=== PATIENT | female | born 1950 | race Caucasian/White ===

== ENCOUNTER 2020-08-02 20:07 | Emergency (ER) | payer MEDICARE, OTHER ==
[2020-08-02] MEDS ORDERED: SODIUM CHLORIDE 0.9% 1,000 ML IV STA (20:08)
[2020-08-02 20:13] LABS: Glucose,Whole Blood 203 mg/dL (75-99)
--- NOTE | 2020-08-02 20:18 | ED ---
CPR HPI - General Stated Complaint: Cardiac Arrest - History of Present Illness Initial Comments: Patient is an elderly female who presents to the emergency department today via ambulance after cardiac arrest. History is provided by the EMS team. They were dispatched to the scene at 19:02, they had been called for shortness of breath. Upon arrival the patient was pulseless and apneic. They began resuscitation per ACLS protocol and obtain return of circulation. In route to the hospital they again loss circulation and performed an additional couple of rounds of CPR and obtained a turn of circulation. In total the patient received 3 doses of epinephrine. - Related Data Allergies Allergy/AdvReac Type Severity Reaction Status Date / Time Unable to Assess Allergy Verified 08/02/20 20:13 Review of Systems ROS Statement: Those systems with pertinent positive or pertinent negative responses have been documented in the HPI. ROS Other: All systems not noted in ROS Statement are negative. General Exam - General Exam Comments Initial Comments: Physical Exam GENERAL: Unresponsive HENT: Normocephalic, Atraumatic. EYES: Pupils 4mm non-reactive PULMONARY: Ventilator respirations, coarse CARDIOVASCULAR: RRR ABDOMEN: Soft and nontender with normal bowel sounds. SKIN: Dusky : Deferred NEUROLOGIC: Unresponsive, intubated, not requiring sedation No pupillary or corneal reflex MUSCULOSKELETAL: No evidence of trauma PSYCHIATRIC: Unable to assess Course Vital Signs 08/02/20 08/02/20 08/02/20 20:08 20:12 20:17 Pulse Rate 81 62 49 L Respiratory 14 14 Rate Blood Pressure 89/60 154/114 O2 Sat by Pulse 78 L Oximetry 08/02/20 08/02/20 08/02/20 20:21 20:28 20:35 Pulse Rate 41 L 158 H 58 L Respiratory 14 14 18 Rate Blood Pressure 72/29 108/72 58/35 O2 Sat by Pulse Oximetry 08/02/20 08/02/20 20:40 20:46 Pulse Rate 120 H 73 Respiratory 14 14 Rate Blood Pressure 146/92 66/47 O2 Sat by Pulse Oximetry Medical Decision Making - Medical Decision Making She was seen and evaluated immediately upon arrival to the emergency department Patient was unresponsive, intubated not requiring sedation While in the emergency department patient repeatedly lost pulses She was resuscitated per ACLS protocol After multiple rounds of CPR patient's cumulative down time was approaching 2 hours, she remained unresponsive with no meaningful neurologic recovery, she remained hypoxic despite FiO2 of 100%, COVID test was positive. At 8:48 PM resuscitation efforts were terminated due to futility of care the patient was pronounced - Lab Data Result diagrams: 08/02/20 20:33 08/02/20 20:33 Lab Results 08/02/20 08/02/20 08/02/20 Range/Units 20:12 20:33 20:33 WBC 11.2 H (3.8-10.6) k/uL RBC 4.15 (3.80-5.40) m/uL Hgb 13.5 (11.4-16.0) gm/dL Hct 43.0 (34.0-46.0) % MCV 103.7 H (80.0-100.0) fL MCH 32.6 (25.0-35.0) pg MCHC 31.5 (31.0-37.0) g/dL RDW 13.6 (11.5-15.5) % Plt Count 201 (150-450) k/uL MPV 9.0 Neutrophils % 80 % Lymphocytes % 15 % Monocytes % 3 % Eosinophils % 0 % Basophils % 1 % Neutrophils # 8.9 H (1.3-7.7) k/uL Lymphocytes # 1.6 (1.0-4.8) k/uL Monocytes # 0.3 (0-1.0) k/uL Eosinophils # 0.0 (0-0.7) k/uL Basophils # 0.1 (0-0.2) k/uL Hypochromasia Marked Macrocytosis Slight PT 10.8 (9.0-12.0) sec INR 1.0 (<1.2) APTT 29.8 (22.0-30.0) sec D-Dimer >34.10 H (<0.60) mg/L FEU Sodium (137-145) mmol/L Potassium (3.5-5.1) mmol/L Chloride (98-107) mmol/L Carbon Dioxide (22-30) mmol/L Anion Gap mmol/L BUN (7-17) mg/dL Creatinine (0.52-1.04) mg/dL Est GFR (CKD-EPI)AfAm (>60 ml/min/1.73 sqM) Est GFR (CKD-EPI)NonAf (>60 ml/min/1.73 sqM) Glucose (74-99) mg/dL POC Glucose (mg/dL) 203 H (75-99) mg/dL POC Glu [employer] ID Dior Lopez Calcium (8.4-10.2) mg/dL Magnesium (1.6-2.3) mg/dL Total Bilirubin (0.2-1.3) mg/dL AST (14-36) U/L ALT (4-34) U/L Alkaline Phosphatase (38-126) U/L Creatine Kinase (30-135) U/L Troponin I (0.000-0.034) ng/mL NT-Pro-B Natriuret Pep pg/mL Total Protein (6.3-8.2) g/dL Albumin (3.5-5.0) g/dL Coronavirus (PCR) (Not Detectd) 08/02/20 08/02/20 08/02/20 Range/Units 20:33 20:33 20:33 WBC (3.8-10.6) k/uL RBC (3.80-5.40) m/uL Hgb (11.4-16.0) gm/dL Hct (34.0-46.0) % MCV (80.0-100.0) fL MCH (25.0-35.0) pg MCHC (31.0-37.0) g/dL RDW (11.5-15.5) % Plt Count (150-450) k/uL MPV Neutrophils % % Lymphocytes % % Monocytes % % Eosinophils % % Basophils % % Neutrophils # (1.3-7.7) k/uL Lymphocytes # (1.0-4.8) k/uL Monocytes # (0-1.0) k/uL Eosinophils # (0-0.7) k/uL Basophils # (0-0.2) k/uL Hypochromasia Macrocytosis PT (9.0-12.0) sec INR (<1.2) APTT (22.0-30.0) sec D-Dimer (<0.60) mg/L FEU Sodium 139 (137-145) mmol/L Potassium 4.3 (3.5-5.1) mmol/L Chloride 104 (98-107) mmol/L Carbon Dioxide 9 L* (22-30) mmol/L Anion Gap 26 mmol/L BUN 14 (7-17) mg/dL Creatinine 1.29 H (0.52-1.04) mg/dL Est GFR (CKD-EPI)AfAm 48 (>60 ml/min/1.73 sqM) Est GFR (CKD-EPI)NonAf 42 (>60 ml/min/1.73 sqM) Glucose 205 H (74-99) mg/dL POC Glucose (mg/dL) (75-99) mg/dL POC Glu [employer] ID Calcium 7.7 L (8.4-10.2) mg/dL Magnesium 3.0 H (1.6-2.3) mg/dL Total Bilirubin 0.7 (0.2-1.3) mg/dL AST 1066 H (14-36) U/L ALT 489 H (4-34) U/L Alkaline Phosphatase 142 H (38-126) U/L Creatine Kinase 469 H (30-135) U/L Troponin I 2.840 H* (0.000-0.034) ng/mL NT-Pro-B Natriuret Pep 2210 pg/mL Total Protein 5.0 L (6.3-8.2) g/dL Albumin 2.7 L (3.5-5.0) g/dL Coronavirus (PCR) (Not Detectd) 08/02/20 Range/Units 20:34 WBC (3.8-10.6) k/uL RBC (3.80-5.40) m/uL Hgb (11.4-16.0) gm/dL Hct (34.0-46.0) % MCV (80.0-100.0) fL MCH (25.0-35.0) pg MCHC (31.0-37.0) g/dL RDW (11.5-15.5) % Plt Count (150-450) k/uL MPV Neutrophils % % Lymphocytes % % Monocytes % % Eosinophils % % Basophils % % Neutrophils # (1.3-7.7) k/uL Lymphocytes # (1.0-4.8) k/uL Monocytes # (0-1.0) k/uL Eosinophils # (0-0.7) k/uL Basophils # (0-0.2) k/uL Hypochromasia Macrocytosis PT (9.0-12.0) sec INR (<1.2) APTT (22.0-30.0) sec D-Dimer (<0.60) mg/L FEU Sodium (137-145) mmol/L Potassium (3.5-5.1) mmol/L Chloride (98-107) mmol/L Carbon Dioxide (22-30) mmol/L Anion Gap mmol/L BUN (7-17) mg/dL Creatinine (0.52-1.04) mg/dL Est GFR (CKD-EPI)AfAm (>60 ml/min/1.73 sqM) Est GFR (CKD-EPI)NonAf (>60 ml/min/1.73 sqM) Glucose (74-99) mg/dL POC Glucose (mg/dL) (75-99) mg/dL POC Glu [employer] ID Calcium (8.4-10.2) mg/dL Magnesium (1.6-2.3) mg/dL Total Bilirubin (0.2-1.3) mg/dL AST (14-36) U/L ALT (4-34) U/L Alkaline Phosphatase (38-126) U/L Creatine Kinase (30-135) U/L Troponin I (0.000-0.034) ng/mL NT-Pro-B Natriuret Pep pg/mL Total Protein (6.3-8.2) g/dL Albumin (3.5-5.0) g/dL Coronavirus (PCR) Detected A (Not Detectd) Critical Care Time Critical Care Time: Yes Total Critical Care Time: 40 Critical Care Time: Critical Care Time 48 min Critical care time was exclusive of separately billable procedures and treating other patients and teaching time. Critical care was necessary to treat or prevent imminent or life-threatening deterioration. Given the critical condition in which the patient arrived, the patient was immediately assessed by myself and the nurse, and cardiac monitoring initiated due to the potential for rapid decompensation of the patient's clinical condition. During the course of the patients stay, I spent a considerable amount of time at the bedside performing serial re-evaluations of the patient's hemodynamic and clinical status because of the recognized potential threat to life or limb in this condition. I then had a chance to review not only all of the available current laboratory and radiographic studies obtained today, but I also reviewed old records available to me at the time. Additionally, any ancillary information available including department specialist records were reviewed. Sequential vital signs were obtained. Disposition Clinical Impression: COVID-19 Disposition: Referrals: Meenu Ribera MD [Primary Care Provider] - 1-2 days Preliminary Cause of : COVID
[2020-08-02] MEDS ORDERED: EPINEPHrine 10 ML SYRINGE (0.1 MG/ML) ONE (20:23)
[2020-08-02] MEDS ORDERED: SODIUM BICARB SYR (1 MEQ/ML) 10 ML SYRINGE ONE (20:23)
[2020-08-02] MEDS ORDERED: NOREPINEPHRINE 8 MG in SODIUM CHLORIDE 0.9% 250 ML IV ONE (20:28)
[2020-08-02 20:42] VITALS: RESP 14
[2020-08-02 20:47] VITALS: BP 66/47; PULSE 73
--- NOTE | 2020-08-02 20:47 | XR ---
EXAMINATION TYPE: XR chest 1V portable DATE OF EXAM: 08/02/2020 COMPARISON: NONE HISTORY: Cardiac arrest. Shortness of breath. TECHNIQUE: Single frontal view of the chest is obtained. FINDINGS: There is demonstration of an endotracheal tube with tip position obscured. There is a naso gastric tube with tip overlying the stomach. There are bilateral diffuse opacities with near complete opacification. No significant pleural effusion or pneumothorax. The cardiac silhouette size is obscu red. IMPRESSION: Bilateral diffuse opacities may represent ARDS, edema, pneumonia and/or aspiration changes. Endotracheal tube tip position cannot be ascertained, however appears to be at the level of the arabella a. Consider retracting 2 cm.
[2020-08-02 20:52] LABS: Albumin 2.7 g/dL (3.5-5.0); Calcium 7.7 mg/dL (8.4-10.2); Potassium 4.3 mmol/L (3.5-5.1); Total Bilirubin 0.7 mg/dL (0.2-1.3)
[2020-08-02 20:57] LABS: Basophils # (A) 0.1 k/uL (0-0.2); Basophils % (A) 1 %; Eosinophils % (A) 0 %; HGB 13.5 gm/dL (11.4-16.0); Hypochromasia Marked; Lymphocytes # (A) 1.6 k/uL (1.0-4.8); Lymphocytes % (A) 15 %; MCH 32.6 pg (25.0-35.0); MCHC 31.5 g/dL (31.0-37.0); MCV 103.7 fL (80.0-100.0); Macrocytosis Slight; Monocytes # (A) 0.3 k/uL (0-1.0); Monocytes % (A) 3 %; Neutrophils # (A) 8.9 k/uL (1.3-7.7); Neutrophils % (A) 80 %; Platelet Count 201 k/uL (150-450); RBC 4.15 m/uL (3.80-5.40); RDW 13.6 % (11.5-15.5); WBC 11.2 k/uL (3.8-10.6)
[2020-08-02 21:10] LABS: Prothrombin Time 10.8 sec (9.0-12.0)
[2020-08-02 23:29] LABS: D-Dimer >34.10 mg/L FEU (<0.60); Partial Thromboplastin Time 29.8 sec (22.0-30.0)
== END 2020-08-02 23:55 | disposition expired ==
LOC: EDBD → EC 20:07
DX: U07.1 COVID-19 (principal)
CPT/HCPCS: 36415; 71045; 80053; 82550; 83735; 83880; 84484; 85025; 85379; 85610; 85730; 87635; 93005; 94002; 96374; 99291